=== PATIENT | female | born 1990 | race Caucasian/White ===

== ENCOUNTER 2017-07-15 10:21 | Emergency (ER) | payer OTHER ==
[~2017-07-15 10:21] MED LIST: HYDR-4309 PO; NAPR500T75 PO; NO RTN MEDS
[2017-07-15] MEDS ORDERED: NORE0.353 PO (10:34)
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
[2017-07-15 11:00] VITALS: BP 118/89
[2017-07-15] MEDS ORDERED: KETOROLAC 30 MG/ML VIAL IM ONE (11:15)
[2017-07-15] MEDS ORDERED: CYCL10TA29 PO (11:28)
[2017-07-15] MEDS ORDERED: METO10TA SL (11:28)
== END 2017-07-15 11:37 | disposition home or self-care (01) ==
LOC: ER 10:32
DX: R51 Headache (principal); M62.830 Muscle spasm of back
CPT/HCPCS: 96372; 99282; J1885